=== PATIENT | female | born 1965 | race Two or more races ===

== ENCOUNTER 2019-09-27 20:11 | Emergency (ER) | payer MEDICAID ==
[~2019-09-27] VITALS: Ht 153 cm; Wt 108.9 kg
[2019-09-27 20:35] VITALS: BP 153/92
--- NOTE | 2019-09-27 22:00 | Emergency Room Report ---
History of Present Illness General Chief Complaint: Flu Like Symptoms Source: Patient Present Illness HPI 54-year-old female presents the ED for evaluation of cough, body aches. Daughter at bedside states that patient has been feeling this way for about 1 week now. Was exposed to somebody with COVID on September 17. Afebrile in triage. Pain is dull, 5 out of 10, nonradiating. Denies chest pain or shortness of breath. Denies nausea or vomiting. No other aggravating relieving factors. 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 Patient History Past Medical History: DM, HTN Past Surgical History: none Pertinent Family History: none Social History: Denies: smoking, alcohol use, drug use Now: No Immunizations: UTD Reviewed Nursing Documentation: PMH: Agreed; PSxH: Agreed Nursing Documentation-PMH Hx Hypertension: Yes Hx Diabetes: Yes Review of Systems All Other Systems: negative except mentioned in HPI Physical Exam Vital Signs Date Time Temp Pulse Resp B/P (MAP) Pulse Ox O2 Delivery O2 Flow Rate FiO2 09/27/19 20:25 98.6 86 20 153/92 (112) 94 Room Air Sp02 EP Interpretation: reviewed, normal General Appearance: no apparent distress, alert, GCS 15, non-toxic Head: normocephalic, atraumatic Eyes: bilateral eye normal inspection, bilateral eye PERRL ENT: hearing grossly normal, normal pharynx, no angioedema, normal voice Neck: full range of motion, supple/symm/no masses Respiratory: chest non-tender, lungs clear, normal breath sounds, speaking full sentences Cardiovascular #1: regular rate, rhythm, no edema Cardiovascular #2: 2+ carotid (R), 2+ carotid (L), 2+ radial (R), 2+ radial (L) , 2+ dorsalis pedis (R), 2+ dorsalis pedis (L) Gastrointestinal: normal bowel sounds, non tender, soft, non-distended, no guarding, no rebound Rectal: deferred Genitourinary: normal inspection, no CVA tenderness Musculoskeletal: back normal, normal range of motion, gait/station normal, non- tender Neurologic: alert, motor strength/tone normal, oriented x3, sensory intact, responsive, speech normal Psychiatric: judgement/insight normal, memory normal, mood/affect normal, no suicidal/homicidal ideation Reflexes: 3+ bicep (R), 3+ bicep (L), 3+ tricep (R), 3+ tricep (L), 3+ knee (R) , 3+ knee (L) Lymphatic: no adenopathy Medical Decision Making Diagnostic Impression: Primary Impression: Pneumonia Qualified Codes: J18.9 - Pneumonia, unspecified organism ER Course Hospital Course 54-year-old female presents with cough, body aches Differential diagnoses include: URI, pharyngitis, otitis media, asthma Clinical course Patient placed in tent. I wore full PPE.. After initial history, physical exam reveals a female in no acute distress. Bilateral TM unremarkable. No pharyngeal erythema. No tonsillar exudates. No lymphadenopathy. crackles on exam Chest x-ray shows bilateral lower lobe opacities. Consideration for pneumonia. Discussed findings with patient and family. Afebrile, nontoxic-appearing. Consideration for COVID. We will prescribe antibiotics and cough medication. Patient should be tested for K[place]it in outpatient setting. Daughter agrees. Safe for discharge and close outpatient follow-up Diagnosis - pneumonia Stable and discharged home. Instructed to followup with PMD. Return to ED if symptoms recur or worsen Chest X-Ray Diagnostic Results Chest X-Ray Diagnostic Results : Chest X-Ray Ordered: Yes # of Views/Limited/Complete: 1 View Indication: Other - cough EP Interpretation: Yes Interpretation: no effusion, no pneumothorax, other - bilateral lower lobe opacities Impression: Other - pneumonia Electronically Signed by: Electronically signed by Dwayne Lima MD Last Vital Signs Date Time Temp Pulse Resp B/P (MAP) Pulse Ox O2 Delivery O2 Flow Rate FiO2 09/27/19 20:35 86 20 Room Air 09/27/19 20:35 98.6 153/92 94 Status: improved Disposition: HOME, SELF-CARE Condition: Stable Scripts Codeine/Promethazine Hcl* (PROMETHAZINE-CODEINE SYRUP*) 118 Ml Syrup 5 ML ORAL Q6H PRN for For Cough, #118 ML 0 Refills Prov: Dwayne Lima MD 09/27/19 Acetaminophen* (TYLENOL EXTRA STRENGTH*) 500 Mg Tablet 500 MG ORAL Q8H PRN for Prn Headache/Temp > 101, #30 TAB 0 Refills Prov: Dwayne Lima MD 09/27/19 Amoxicillin* (AMOXIL*) 500 Mg Capsule 500 MG ORAL THREE TIMES A DAY, #21 CAP Prov: Dwayne Lima MD 09/27/19 Referrals: NOT CHOSEN IPA/,REFERRING (PCP) Dwayne Lima MD Sep 27, 2019 22:00
--- NOTE | 2019-09-27 22:15 | Diagnostic Imaging Report ---
EXAM: XR Chest, 1 View CLINICAL HISTORY: COUGH TECHNIQUE: Frontal view of the chest. COMPARISON: No relevant prior studies available. FINDINGS: Lungs: Slightly increased peripheral opacities bilaterally in the lower lobes. Pleural space: No acute findings Heart: cardiomegaly. Bones/joints: No acute findings. IMPRESSION: Slightly increased peripheral opacities bilaterally in the lower lobes. Correlate with infectious/inflammatory process.
[2019-09-27] MEDS ORDERED: AMOXICILLIN500 MG ORAL (22:17)
[2019-09-27] MEDS ORDERED: TYLENOL EXTRA500 MG ORAL (22:17)
[2019-09-27] MEDS ORDERED: PROMETHAZINE-C118 M1 ORAL (22:17)
[2019-09-27 22:23] VITALS: BP 153/92
== END 2019-09-27 22:24 | disposition home or self-care (01) ==
LOC: EMR 21:35
DX: J18.9 Pneumonia, unspecified organism (principal); E11.9 Type 2 diabetes mellitus without complications; I10 Essential (primary) hypertension
CPT/HCPCS: 71045; Z7502; 99283